=== PATIENT | female | born 1960 | race Caucasian/White ===

== ENCOUNTER 2021-06-30 09:01 | Day surgery (SDC) | payer BC ==
[2021-06-28 14:35] VITALS: BMI 33.6
--- NOTE | 2021-06-30 07:10 | P.HPOR ---
History of Present Illness H&P Date: 06/30/21 Chief Complaint: Right Distal Radius Fracture New Patient Hand Surgery H&P Office Note Age: 60 year Height: 5'3" Weight: 190 lbs BMI: 33.66 kg/m2 Subjective: This is a 60 year old right hand dominant female that presents today for initial evaluation regarding a right wrist injury that occurred on 06/23/21. She states she was walking her dog in the [facility] with a dog leash and accidently slipped on a slippery board walk and fell onto an outstretched hand. She was seen in the ED in the [place] and placed in a wrist splint which she has been wearing since her injury but has been in and out of the splint for showering. She states she is having pain, swelling and bruising in the area of the right wrist. She denies any paresthesias or any other areas of pain. Physical Examination: RUE: AIN/PIN/Radial/Ulnar/Median motor intact. Radial/Ulnar/Median SILT. 2+/4 Radial/Ulnar pulses palpated. Dorsal wrist TTP with brusing present. Imaging: X-Rays of the right wrist AP/Lat/Oblique views demonstrate a comminuted intra- articular distal radius fracture with loss of radial height, inclination and 30 degrees of dorsal angulation with extensive dorsal comminution. Impression: 1.) Right displaced, comminuted, intra-articular distal radius fracture. Plan: Diagnosis and treatment options were discussed with the patient . Due to the patients age, activity level and x-ray findings showing an intra-articular distal radius fracture with dorsal angulation and comminution I recommend surgical intervention. Risks of surgery were discussed with the patient including bleeding, infection, stiffness, damage to surrounding tissue, need for further surgery, and possible need for post operative occupational therapy were discussed with the patient and she was agreeable with this plan of action. Pre- operative labs/EKG are ordered and we will tentatively schedule a right distal radius fracture ORIF in the near future. All questions answered. -Darwin Rich DO Orthopedic Hand/Upper Extremity Surgeon Past Medical History Past Medical History: No Reported History Additional Past Medical History / Comment(s): CHRONIC ANEMIA-NO NEED FOR TREATMENT History of Any Multi-Drug Resistant Organisms: None Reported Past Surgical History: Bariatric Surgery, Cholecystectomy, Tubal Ligation Past Anesthesia/Blood Transfusion Reactions: No Reported Reaction Past Psychological History: No Psychological Hx Reported Smoking Status: Never smoker Past Alcohol Use History: Occasional Past Drug Use History: None Reported - Past Family History Mother Family Medical History: No Reported History Medications and Allergies Home Medications Medication Instructions Recorded Confirmed Type Ascorbic Acid [Vitamin C] 1,000 mg PO DAILY 06/28/21 06/28/21 History Biotin [Biotin Disolve] 5,000 mcg PO DAILY 06/28/21 06/28/21 History Cholecalciferol (Vitamin D3) 125 mcg PO DAILY 06/28/21 06/28/21 History [Vitamin D3 (125 MCG = 5,000 IU)] Cyanocobalamin (Vitamin B-12) 2,000 mcg PO DAILY 06/28/21 06/28/21 History [Vitamin B12] Nf-Quercetin 1 tab PO DAILY 06/28/21 06/28/21 History Selenium 50 mcg PO DAILY 06/28/21 06/28/21 History Zinc 50 mg PO DAILY 06/28/21 06/28/21 History Allergies Allergy/AdvReac Type Severity Reaction Status Date / Time Sulfa (Sulfonamide Allergy Rash/Hives Verified 06/28/21 14:23 Antibiotics) Physical Examination Osteopathic Statement: *. No significant issues noted on an osteopathic structural exam other than those noted in the History and Physical/Consult.
[~2021-06-30 09:01] MED LIST: DEXAMETHASONE SOD PHOSPHATE 4 MG/ML 1 ML VIAL IV ONE; LACTATED RINGERS 1,000 ML IV SCH; LIDOCAINE 1% (10MG/ML) FOR IV START INTRADERMA PRN; ONDANSETRON 4 MG/2 ML VIAL IVP ONE; fentaNYL (PF) 50 MCG/ML 2 ML AMP IV PRN
[2021-06-30 09:27] VITALS: TEMP 98.1
[2021-06-30] MEDS ORDERED: MIDAZOLAM 2 MG/2 ML VIAL IV ONE (09:59)
[2021-06-30] MEDS ORDERED: PROPOFOL 10 MG/ML 20 ML VIAL IV ONE (10:13)
[2021-06-30] MEDS ORDERED: LIDOCAINE 1% INJ 10MG/ML (20 ML MDV) ONE (10:13)
[2021-06-30] MEDS ORDERED: KETAMINE 10 MG/ML 20 ML VIAL ONE (10:13)
[2021-06-30] MEDS ORDERED: ROPIVACAINE 5 MG/ML 30 ML VIAL ONE (10:13)
[2021-06-30] MEDS ORDERED: MIDAZOLAM 2 MG/2 ML VIAL ONE (10:13)
[2021-06-30] MEDS ORDERED: fentaNYL (PF) 50 MCG/ML 2 ML AMP ONE (10:13)
--- NOTE | 2021-06-30 10:35 | P.ANPRN ---
Procedure Note - Anesthesia - Nerve Block Performed Right Suprascapular Nerve Block Single Date of Procedure: 06/30/21 Procedure Start Time: 09:59 Procedure Stop Time: 10:11 Location of Patient: PreOp Indication: Acute Post-Operative Pain, Requested by Surgeon Specifically requested for management of pain by DrRadha: Darwin Rich Sedation Type: Sedate with meaningful contact maintained Preparation: Sterile Prep Position: Sitting Needle Gauge: 21 Ultrasound used to visualize needle placement: Yes Ultrasound used to observe medication spread: Yes Injectate: 0.5% Ropivacaine (see comment for volume) Blood Aspirated: No Pain Paresthesia on Injection Noted: No Resistance on Injection: Normal Image Stored and Saved: Yes Events: Uneventful and Well Tolerated (30 mls)
[2021-06-30 12:07] VITALS: RESP 18
--- NOTE | 2021-06-30 12:24 | FL ---
Fluoroscopy HISTORY: Wrist fracture 29 seconds fluoroscopy time supplied to the referring clinician. 3 intraoperative C-arm images docum ent the procedure. See dictated report from orthopedic surgery.
[2021-06-30 12:46] VITALS: BP 122/81; PULSE 70
--- NOTE | 2021-06-30 17:25 | P.OP ---
Date of Procedure: 06/30/21 Preoperative Diagnosis: Right intra-articular distal radius fracture, 3 part. Postoperative Diagnosis: Same Procedure(s) Performed: Open reduction internal fixation right 3 part intra-articular distal radius fracture Anesthesia: regional Surgeon: Darwin Rich Estimated Blood Loss (ml): 5 Pathology: none sent Condition: stable Disposition: PACU Description of Procedure: This is a 60 year old female who sustained a displaced, angulated and intra- articular right distal radius fracture. Due to the amount of displacement and patients age and activity level surgical intervention was planned and patient presents today for ORIF of her right distal radius fracture. Risks and benefits of surgery were discussed with the patient including bleeding, damage to surrounding tissue, infection, need for further surgery as well as risks of anesthesia including pulmonary embolism and even and the patient wished to proceed with surgical intervention. The patients was seen in the pre-operative area by myself. Consent and H&P were completed and updated. The correct extremity was marked in the pre-operative area by myself and all other questions were answered. Patient received a regional upper extremity nerve block by the department of Anesthesia. Operative Narrative: The patient was brought to the operating room by the department of anesthesia. They remained on the portable stretcher and a rolling hand table was brought to the side of the operative extremity. The patient was then drifted off to sleep by the department of anesthesia. A nonsterile tourniquet was then applied to the operative extremity and the right upper extremity was then pr epped and draped in normal sterile fashion. Pre-operative time out was performed indicating the correct patient, procedure and laterality. All in the room agreed. Pre-operative antibiotics were given prior to skin incision. The operative extremity was the exsanguinated with an esmarch bandage and the tourniquet was inflated to 250mmHg. A longitudinal incision centered over the FCR tendon was made with a 15 blade scalpel. Blunt dissection was taken down to the FCR tendon sheath using Bovie cautery for meticulous hemostasis. The FCR sheath was opened with tenotomy scissors and translated ulnarly The floor of the FCR sheath was then incised with a 15 blade scalpel and the FPL tendon and muscle belly was swept bluntly in an ulnar direction to reveal the pronator quadratus. Pronator quadratus was sharply incised with a 15 blade scalpel along the radial border of the distal radius, coming across transversely parallel to the joint at the level of the watershed line, radial artery was identified and protected. Periosteal elevator was then used to elevate the pronator quadratus off the distal radius from a radial to ulnar fashion. Comminuted 3 part fracture line was visualized that included volar extension into the lunate facet. A [place] elevator was used to lever the distal piece back into place and free up the fractured fragments. A narrow width Blanca/biomet crosslock DVR plate was chosen to fit the patients anatomy best. This was placed on the distal radius under direct visualization and the oblong hole was drilled and filled with a cortical screw. C arm was then utilized to visualize plate placement and it was determined that the plate needed to be shifted slightly radial and proximal, cortical oblong screw was removed and plate was repositioned and reduction maneuver was performed again reducing the distal fragment to the plate and secured distally with a ulnarly placed k-wire. Position was checked again on c-arm and caodaism of radial height, inclination, and volar tilt was appreciated. The proximal row was then drilled and filled from ulnar to radial holes with locking screws. Distal row was then drilled and filled with smooth pegs. Attention was then brought to the proximal shaft screws. Proximal crosslocking shaft screws were drilled with a nonlocking screws. The previously filled screw hole in the oblong hole had a weak bite despite cortical purchase therefore it was removed and a locking screw was then placed in the most proximal shaft screw hole. The wrist joint was the ranged and full smooth flexion/extension with no crepitus appreciated. Final imaging was taken confirming extra-articular placement of distal screws at DRUJ and radiocarpal joint. The wound was then irrigated. The pronator quadratus was then able to be repaired over the plate with 3-0 vicryl. Subcutaneous closure was performed with 3-0 vicryl followed by skin closure with 4-0 nylon suture. Sterile dressing consisting of bacitracin, adaptic, 4x4s and a volar plaster splint was applied. Tourniquet was let down and all fingers had immediate normal perfusion. The patient was then woken by the department of anesthesia and transferred to PACU in stable condition. Darwin Rich D.O. Orthopedic Hand/Upper Extremity Surgeon
== END 2021-06-30 13:39 | disposition home or self-care (01) ==
LOC: OR 09:01
PROVIDERS: ATTEND Orthopaedic Surgery Hand Surgery
DX: S52.571A Other intraarticular fracture of lower end of right radius, initial encounter for closed fracture (principal); Z88.2 Allergy status to sulfonamides
CPT/HCPCS: 25609; 20680; 64415; 76942; 73100; C1713; J2250; J1100; J0690; J2405; J2001; J3010; J2795; J2704